=== PATIENT | female | born 1965 | race Caucasian/White ===

== ENCOUNTER → 2024-02-03 18:13 | Outpatient (REF) | payer OTHER, SELFPAY | LOC: WDC 18:13 | PROVIDERS: ATTENDING PHYSICIAN Obstetrics & Gynecology Gynecology; FAMILY PHYSICIAN Nurse Practitioner Adult Health | DX: Z12.31 Encounter for screening mammogram for malignant neoplasm of breast (principal) | CPT/HCPCS: 77063; 77067 ==

== ENCOUNTER 2025-01-17 10:50 | Emergency (ER) | payer OTHER, SELFPAY ==
[2025-01-17 10:58] VITALS: BP 133/92
[2025-01-17] MEDS: NSS 1000 IV (13:09)
[2025-01-17] MEDS: ZOFRAN 4 MG IV (13:09)
[2025-01-17 13:19] LABS: Hematocrit 43.9 % (37.0-47.0); Hemoglobin 15.5 g/dL (12.0-16.0); Mean Corp Hgb Conc. 35.3 g/dL (33.0-37.0); Mean Corpuscular Volume 88.7 fL (81.0-99.0); Nucleated Red Blood Cells % 0 %; Platelet Count 139 10^3/uL (130-400); Red Cell Dist. Width 12.9 % (11.5-14.5)
[2025-01-17 13:29] LABS: ALT (SGPT) 121 U/L (0-35); AST (SGOT) 117 U/L (14-36); Albumin 4.0 g/dl (3.5-5.0); Alkaline Phosphatase 150 U/L (38-126); Blood Urea Nitrogen 17 mg/dl (7-17); Calcium 8.4 mg/dl (8.4-10.2); Carbon Dioxide 28 mmol/L (22-30); Chloride 100 mmol/L (98-107); Glucose 87 mg/dl (70-99); Potassium 3.7 mmol/L (3.5-5.1); Sodium 134 mmol/L (135-145); Total Protein 7.0 g/dl (6.3-8.2); eGFR > 60.00
--- NOTE | 2025-01-17 13:39 | ED.GENMED ---
History of Present Illness
General
Chief Complaint: Abdominal Pain
Source: patient
Exam Limitations: none
Time Seen by Provider: 01/17/25 12:24
Nursing documentation reviewed up to this point in time: agreed with
History of Present Illness
History of Present Illness:
59-year-old female presenting to the emergency department today with concerns of nausea vomiting diarrhea over the past 3 days. Started feel some lightheadedness and weakness. Trouble tolerating anything by mouth. Denies any significant fevers
chest pain or shortness of breath.
Review of Systems
Review of Systems
Allergies reviewed?: Yes
All Other Systems: ROS reviewed and negative except as documented in HPI and ROS
Phy Exam
Physical Exam
Physical Exam:
GENERAL: Alert , in no apparent distress
EYE: pupils equal and reactive
NECK: Supple, no significant adenopathy.
ENT: o/p clr, mmm.
CARDIAC: Regular rate and rhythm .
LUNGS: Clear breath sounds bilaterally, no acute respiratory distress, no wheezes/rales/rhonchi
ABDOMEN: Soft, without focal tenderness, no r/g, no cvat
NEUROLOGICAL: Alert and oriented, no focal neuro deficits
SKIN: Warm and dry, skin intact.
MUSCULOSKELETAL: No edema, well perfused.
PSYCH: Normal and appropriate interaction.
Course
Orders/Labs/Results
Orders:
Orders
01/17/25 12:53
0.9% Sodium Chloride 1000 ml [Nss] 1,000 ml IV BOLUS
Ondansetron Injectable [Zofran] 4 mg IV NOW STA
01/17/25 13:06
CBC/With Diff [Complete Blood Count/With Diff] Urgent
CMP [Comprehensive Metabolic Panel] Urgent
Abnormal Lab Results
01/17/25
13:06
WBC 3.7 L 10^3/uL
(4.8-10.8)
MCH 31.3 H pg
(27.0-31.0)
MPV 11.3 H fL
(7.4-10.4)
Abs Immat Gran (auto) 0.1 H 10^3/uL
(0-0.05)
Absolute Lymphs (auto) 0.7 L 10^3/uL
(1.2-3.4)
Immature Gran % 3.0 H %
(0-0.5)
Lymphocytes % 20.1 L %
(20.5-51.1)
Monocytes % 11.1 H %
(1.7-9.3)
Sodium 134 L mmol/L
(135-145)
AST 117 H U/L
(14-36)
ALT 121 H U/L
(0-35)
Alkaline Phosphatase 150 H U/L
(38-126)
01/17/25 13:06
01/17/25 13:06
Vital Signs
Initial and Last Documented VS:
Initial Vital Signs
Temp Pulse Resp BP Pulse Ox
98.3 F 100 20 133/92 99
01/17/25 10:58 01/17/25 10:58 01/17/25 10:58 01/17/25 10:58 01/17/25 10:58
Last Documented Vital Signs
Temp Pulse Resp BP Pulse Ox
98.3 F 100 20 133/92 99
01/17/25 10:58 01/17/25 10:58 01/17/25 10:58 01/17/25 10:58 01/17/25 13:40
MDM/Problems Addressed
MDM/Problems Addressed:
59-year-old female presenting to the emergency department with concerns of nausea vomiting diarrhea over the past 3 days. On arrival heart rate of 100 otherwise vital signs are normal. Patient no distress and no abdominal pain to palpation.
Patient was given fluids as well as Zofran labs were obtained showing slight elevation to liver function test but otherwise no emergent findings. Patient with significant improvement of symptoms after fluids and nausea medication. At this point
patient stable for discharge. Return precautions given.
*Pulse Oximetry
SaO2: 99
Oxygen Mode of Delivery: Room air
Patient hypoxic: no (99)
*Critical Care Note
Total Time (30-74mins, 75-104mins- exclusive of procedures): Not Applicable
ED Attending Note
-
Portions of this chart may have been created with voice recognition software.� Occasional wrong word or��sound alike� substitutions may have occurred due to the inherent limitations of voice recognition software.
Discharge Plan
Departure
Patient Disposition: Home (Routine Discharge)
Date of Disposition: 01/17/25
Time of Disposition: 16:17
Patient with high blood pressure during this ER visit?: No
Condition: Good
Covid-19: Not Applicable
Discharge Problem:
Vomiting and diarrhea
Instructions: Nausea and Vomiting, Adult (DC)
Prescriptions:
New
ondansetron 4 mg tablet,disintegrating
4 mg PO Q6H PRN (Reason: nausea and vomiting) Qty: 7 0RF
Referrals:
Tylor Almendarez CRNP [Family Provider, Internal Medicine]
Activity Restrictions/Additional Instructions:
You came to the emergency department today with concerns of nausea vomiting diarrhea. Here you had a reassuring assessment. Please take the prescribed medication and follow close with the primary care doctor. Return for any worsening, new or
concerning symptoms.
Interventions
Interventions:
*Risk Screen - Suicide Last Done: 01/17/25 13:00
*General Assessment Last Done: 01/17/25 13:00
*Neglect/Abuse Screening Last Done: 01/17/25 13:00
*ED COVID-19 Vaccine History Last Done: 01/17/25 13:00
*ED Influenza Vaccine History Last Done: 01/17/25 13:00
[facility] Fall Risk Assessment Tool Last Done: 01/17/25 13:00
IN-Mifrea-Depjzvhqfs Assessment Last Done: 01/17/25 13:00
Discharge Date and Time
Print Language: [id number]
[2025-01-17 14:00] VITALS: BP 122/76
[2025-01-17 16:00] VITALS: BP 124/78
== END 2025-01-17 17:18 | disposition home or self-care (01) ==
LOC: EMR 10:50
PROVIDERS: Physician Assistant; EMERGENCY PHYSICIAN Student in an Organized Health Care Education/Training Program; FAMILY PHYSICIAN Nurse Practitioner Adult Health
DX: R11.2 Nausea with vomiting, unspecified (principal); R19.7 Diarrhea, unspecified; R42 Dizziness and giddiness; R53.1 Weakness
CPT/HCPCS: 96374; 96361; 99284; 80053; 85025

== ENCOUNTER → 2025-02-05 17:49 | Outpatient (REF) | payer OTHER, SELFPAY | LOC: WDC 17:49 | PROVIDERS: ATTENDING PHYSICIAN Nurse Practitioner Adult Health | DX: Z12.31 Encounter for screening mammogram for malignant neoplasm of breast (principal) | CPT/HCPCS: 77063; 77067 ==